=== PATIENT | female | born 2000 | race Hispanic/Latino ===

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

== ENCOUNTER → 2023-05-06 | Emergency (ER) | payer MEDICAID ==
[~2023-05-06] MED LIST: METH4TAB3 PO
== END ==
LOC: EDH 18:35
DX: M54.50 Low back pain, unspecified (principal); R50.9 Fever, unspecified; R11.2 Nausea with vomiting, unspecified; Z53.21 Procedure and treatment not carried out due to patient leaving prior to being seen by health care provider